=== PATIENT | male | born 1960 | race Caucasian/White ===

== ENCOUNTER → 2025-04-28 | Outpatient (REF) | payer MEDICARE, OTHER ==
[2025-04-28 16:09] LABS: VITAMIN B12 LEVEL 576.0 PG/ML (211-911)
== END ==
LOC: M LAB REF 14:24
PROVIDERS: ATTEND Internal Medicine
DX: R41.3 Other amnesia (principal)

== ENCOUNTER → 2025-07-12 | Outpatient (CLI) | payer MEDICARE, BC | LOC: M PLAIMG 12:26 | PROVIDERS: ATTEND Internal Medicine | DX: F04 Amnestic disorder due to known physiological condition (principal) ==